=== PATIENT | male | born 1985 | race Caucasian/White ===

== ENCOUNTER 2023-09-15 01:34 | Emergency (ER) | payer BC, SELFPAY ==
[2023-09-15 01:41] VITALS: BP 174/123; PULSE 93; RESP 18; TEMP 36.8; O2SAT 97
--- NOTE | 2023-09-15 01:42 | ECG_ITS ---
Measurements Intervals [place] Rate: 88 P: 27 OK: 158 QRS: 41 QRSD: 100 T: 18 QT: 351 QTc: 426 Interpretive Statements SINUS RHYTHM NORMAL ECG NO PREVIOUS ECG AVAILABLE FOR COMPARISON Electronically Signed On 09-15-2023 9:05:22 [employer] by Sam Vega D.O.
[2023-09-15 01:55] LABS: Basophils Absolute Auto 0.1 K/mm3 (0.0-0.1); Basophils Percent Auto 0.5 % (0.2-1.2); Eosinophils Absolute Auto 0.1 K/mm3 (0-0.3); Eosinophils Percent Auto 0.6 % (0-4.4); Hematocrit 51.6 % (42.0-52.0); Hemoglobin 17.5 g/dL (14.0-18.0); Immature Granulocyte Absolute 0.08 K/mm3 (0.00-0.031); Immature Granulocyte Percent A 0.6 % (0-0.5); Lymphocytes Absolute Auto 1.48 K/mm3 (0.9-3.2); Lymphocytes Percent Auto 11.3 % (18.3-44.2); Mean Corpuscular HGB Conc 33.9 g/dl (32-36); Mean Corpuscular Volume 91.5 fl (80-100); Mean Platelet Volume 8.9 fl (7.4-10.4); Monocytes Absolute Auto 0.8 K/mm3 (0.1-0.6); Monocytes Percent Auto 6.2 % (2.6-8.5); Neutrophils Absolute Auto 10.6 K/mm3 (1.3-6.7); Neutrophils Percent Auto 80.8 % (45.5-73.1); Platelet Count Result 277 k/mm3 (150-375); Red Blood Count 5.64 M/mm3 (4.6-6.20); Red Cell Distribution Width 12.4 % (11.5-14.5); White Blood Count 13.1 K/mm3 (4.5-10.0)
[2023-09-15 01:58] LABS: Appearance Urine Clear (Clear); Bilirubin Urine Negative (Negative); Blood Urine Negative (Negative); Color Urine Yellow (Yellow); Glucose Urine UA Negative (Negative); Ketones Urine Trace mg/dL (Negative); Leukocyte Esterase Ur Negative LEU/UL (Negative); Nitrate Urine Negative (Negative); Protein Urine Negative (Negative); Specific Grav Ur 1.025 (1.001-1.035); pH Urine 6.5 (5.0-9.0)
--- NOTE | 2023-09-15 02:02 | ED.GENADULT ---
HPI - General Adult General Chief complaint: Psychiatric Symptoms Stated complaint: SI Time Seen by Provider: 09/15/23 01:37 History of Present Illness HPI narrative: Patient is a 38-year-old gentleman who presents emergency department with chief complaint of suicidal ideation. Per the patient he was upset this evening and said some things that he probably should not have said apparently the patient was in argument with his significant other and said that he wanted to harm himself the patient states that he actively does not want to harm himself and reports that he has never pride tried to harm himself before in the past. Per the change management facilitator's department the patient apparently pulled a shot gun out with chills and set them on the table while he said that he wanted to kill himself Related Data Allergies Allergy/AdvReac Type Severity Reaction Status Date / Time No Known Drug Allergies Allergy Unknown Unverified 06/20/14 03:06 Review of Systems Review of Systems: A 10 system review of systems was completed on the patient and is negative except for what is stated in the HPI. Nursing and ancillary documentation was reviewed. [facility] Social History Social History Substance use type: does not use Exam Narrative: GENERAL: Well-appearing, well-nourished, and in no acute distress. HEAD: Normocephalic, atraumatic. EYES: PERRLA and EOMI. ENT: Nares clear, no rhinorrhea or epistaxis. Mucous membranes moist. NECK: Supple. CHEST: Clear to auscultation. No respiratory distress. HEART: Regular rate and rhythm. No murmur heard. Normal peripheral pulses. ABDOMEN: Soft, nontender, nondistended, normal active bowel sounds. EXTREMITIES: Normal range of motion. No edema. SKIN: Warm, dry, no rash. NEURO: No focal deficits. Alert and oriented x3. PSYCH: Normal mood and affect. Course Vital Signs Vital signs: Vital Signs Temperature 36.8 C 09/15/23 01:41 Pulse Rate 93 09/15/23 01:41 Respiratory Rate 18 09/15/23 01:41 Blood Pressure 174/123 H 09/15/23 01:41 Pulse Oximetry 97 09/15/23 01:41 Temperature 36.8 C 09/15/23 01:41 Pulse Rate 93 09/15/23 01:41 Respiratory Rate 18 09/15/23 01:41 Blood Pressure 174/123 H 09/15/23 01:41 Pulse Oximetry 97 09/15/23 01:41 Medical Decision Making MDM Narrative Medical decision making narrative: Differential diagnosis includes suicidal ideation, attention seeking behavior, metabolic disorder, COVID test was negative Metabolic screens were negative. Drug screens were were negative The patient is medically cleared for psychiatric evaluation referral transferred admission The patient was seen by crisis and was cleared for outpatient follow-up. Vital Signs Vital Signs: Vital Signs Temperature 36.8 C 09/15/23 01:41 Pulse Rate 93 09/15/23 01:41 Respiratory Rate 18 09/15/23 01:41 Blood Pressure 174/123 H 09/15/23 01:41 Pulse Oximetry 97 09/15/23 01:41 Temperature 36.8 C 09/15/23 01:41 Pulse Rate 93 09/15/23 01:41 Respiratory Rate 18 09/15/23 01:41 Blood Pressure 174/123 H 09/15/23 01:41 Pulse Oximetry 97 09/15/23 01:41 Lab Data 09/15/23 01:48 09/15/23 01:48 Labs: Lab Results 09/15/23 09/15/23 09/15/23 Range/Units 01:46 01:48 01:50 WBC 13.1 H (4.5-10.0) K/mm3 RBC 5.64 (4.6-6.20) M/mm3 Hgb 17.5 (14.0-18.0) g/dL Hct 51.6 (42.0-52.0) % MCV 91.5 (80-100) fl MCH 31.0 (26-34) pg MCHC 33.9 (32-36) g/dl RDW 12.4 (11.5-14.5) % Plt Count 277 (150-375) k/mm3 MPV 8.9 (7.4-10.4) fl Immature Gran % (Auto) 0.6 H (0-0.5) % Neut % (Auto) 80.8 H (45.5-73.1) % Lymph % (Auto) 11.3 L (18.3-44.2) % [place] % (Auto) 6.2 (2.6-8.5) % Eos % (Auto) 0.6 (0-4.4) % Baso % (Auto) 0.5 (0.2-1.2) % Lymph # (Auto) 1.48 (0.9-3.2) K/mm3 [place] # (Auto)
[2023-09-15 02:05] LABS: Alanine Aminotransferase 46 U/L (6-50); Albumin Level 4.6 g/dL (3.5-5.1); Alkaline Phosphatase 78 U/L (38-126); Anion Gap 6 mmol/L (8-16); Aspartate Amino Transferase 34 U/L (17-59); Bilirubin,Total 0.5 mg/dL (0.2-1.3); Blood Urea Nitrogen 16 mg/dL (9-20); Calcium 9.2 mg/dL (8.4-10.2); Carbon Dioxide 25 mmol/L (22-30); Chloride 105 mmol/L (98-107); Estimated CRCL calculation 87 ml/min; Estimated Glomerular Filt Rate > 60; Ethanol < 10 mg/dL (<10); Glucose 112 mg/dL (65-110); Potassium 4.1 mmol/L (3.4-5.0); Sodium 136 mmol/L (137-145)
[2023-09-15 02:09] LABS: Add Urine Microscopic? NO
[2023-09-15 02:14] LABS: Barbiturate Screen Urine Negative (Negative); Benzodiazepines Screen Urine Negative (Negative)
[2023-09-15 02:17] LABS: Amphetamine Screen Urine Negative (Negative); Cannabinoid Screen Urine Negative (Negative); Methadone Screen Urine Negative (Negative); Opiate Screen Urine Negative (Negative); Phencyclidine Screen Urine Negative (Negative)
[2023-09-15 02:29] LABS: Cocaine Screen Urine Negative (Negative)
[2023-09-15 02:32] LABS: SARS-CoV-2 RNA PCR Negative (Negative)
[2023-09-15 02:32] LABS: Acetaminophen < 10 ug/mL (10-30); Salicylate < 1.0 mg/dL (2-20)
[2023-09-15 04:17] VITALS: BP 154/90; PULSE 72; RESP 16; TEMP 36.7; O2SAT 99
== END 2023-09-15 04:18 | disposition home or self-care (01) ==
PROVIDERS: Emergency Provider Emergency Medicine
DX: F43.9 Reaction to severe stress, unspecified (principal); R45.851 Suicidal ideations
CPT/HCPCS: 36415; 80053; 80307; 81003; 84443; 85025; 87635; 93005; 99284

== ENCOUNTER 2024-04-14 12:54 | Outpatient (CLI) | payer BC, SELFPAY ==
[2024-04-14 13:56] LABS: Basophils Absolute Auto 0.1 K/mm3 (0.0-0.1); Basophils Percent Auto 0.5 % (0.2-1.2); Eosinophils Percent Auto 0.3 % (0-4.4); Hematocrit 50.8 % (42.0-52.0); Hemoglobin 17.8 g/dL (14.0-18.0); Immature Granulocyte Absolute 0.09 K/mm3 (0.00-0.031); Immature Granulocyte Percent A 0.8 % (0-0.5); Lymphocytes Absolute Auto 1.13 K/mm3 (0.9-3.2); Lymphocytes Percent Auto 9.9 % (18.3-44.2); Mean Corpuscular Hemoglobin 31.9 pg (26-34); Mean Platelet Volume 9.3 fl (7.4-10.4); Monocytes Absolute Auto 0.6 K/mm3 (0.1-0.6); Monocytes Percent Auto 5.4 % (2.6-8.5); Neutrophils Absolute Auto 9.5 K/mm3 (1.3-6.7); Neutrophils Percent Auto 83.1 % (45.5-73.1); Platelet Count Result 296 k/mm3 (150-375); Red Blood Count 5.58 M/mm3 (4.6-6.20); Red Cell Distribution Width 12.3 % (11.5-14.5); White Blood Count 11.4 K/mm3 (4.5-10.0)
[2024-04-14 16:21] LABS: Iron 110 ug/dL (49-181)
[2024-04-14 16:30] LABS: Percent Iron Saturation 31 % (20-50)
== END 2024-04-14 12:55 | disposition home or self-care (01) ==
PROVIDERS: PCP Internal Medicine; Visit Provider Internal Medicine
DX: R89.8 Other abnormal findings in specimens from other organs, systems and tissues (principal)
CPT/HCPCS: 36415; 82728; 83540; 83550; 85025

== ENCOUNTER 2024-04-16 08:25 | Outpatient (CLI) | payer BC, SELFPAY ==
[2024-04-16 08:48] LABS: Alveolar/Arterial O2 Gradient 21.7 mmHg; Base Excess ABG -0.2 mEq/l (+/-2.0); Carboxyhemoglobin 0.3 % THb (0-2.0); Fractional Inspired Oxygen 21 %; HCO3 ABG 23.9 mEq/l (22.0-26.0); Methemoglobin ABG 0.3 %THb (0-1.5); Oxygen Content ABG 24.9 %vol (16.0-22.0); Oxygen Saturation ABG 96.4 % (95.0-100.0); PCO2 ABG 37.7 mmHg (35.0-45.0); PO2 ABG 82.9 mmHg (80.0-100.0); PO2 FiO2 Ratio Arterial Blood 3.95 %; Reduced Hemoglobin 3.4 %THb (0-5.0); Total Hemoglobin 18.5 g/dL (12.0-18.0)
[2024-04-16 08:54] LABS: Device ROOM AIR; Modified Allen's Test Pass; Site Drawn RIGHT BRACHIAL
== END 2024-04-16 08:26 | disposition home or self-care (01) ==
PROVIDERS: PCP Internal Medicine; Visit Provider Internal Medicine
DX: R89.9 Unspecified abnormal finding in specimens from other organs, systems and tissues (principal)
CPT/HCPCS: 36600; 82375; 82805; 83050; 85018